=== PATIENT | male | born 1990 | race Caucasian/White ===

== ENCOUNTER 2017-08-10 13:17 | Emergency (ER) | payer SELFPAY ==
[~2017-08-10] VITALS: Ht 182.9 cm; Wt 63.5 kg
[2017-08-10 13:22] VITALS: BP 144/91
[2017-08-10] MEDS ORDERED: METRONIDAZOLE 500 MG TABLET ONE (14:49)
[2017-08-10] MEDS ORDERED: CEFTRIAXONE 500 MG VIAL ONE (14:49)
[2017-08-10] MEDS ORDERED: AZITHROMYCIN 250 MG TABLET ONE ×2 (14:49→14:52)
[2017-08-10] MEDS ORDERED: LIDOCAINE /MPF 1% VIAL 5 ML VIAL ONE (14:51)
[2017-08-10] MEDS ORDERED: CEFTRIAXONE 1 G VIAL ONE (14:52)
[2017-08-10] MEDS ORDERED: LIDOCAINE 2% JEL 5 ML TUBE ONE (14:53)
[2017-08-10] MEDS ORDERED: AZITHROMYCIN 250 MG TABLET PO ONE (15:00)
[2017-08-10] MEDS ORDERED: METRONIDAZOLE 500 MG TABLET PO ONE (15:00)
[2017-08-10] MEDS ORDERED: CEFTRIAXONE 500 MG VIAL IM ONE (15:00)
[2017-08-10 15:05] LABS: APPEARANCE,URINE Slightly Cloudy (CLEAR); BILIRUBIN,URINE Negative (NEGATIVE); BLOOD, URINE Negative Ery/uL (NEGATIVE); COLOR,URINE Yellow (YELLOW); KETONES,URINE Negative (NEGATIVE); LEUKOCYTE ESTERASE ,URINE Moderate (NEGATIVE); NITRITE, URINE Negative (NEGATIVE); PROTEIN,URINE Trace mg/dl (NEGATIVE); UGLUCOSE Negative (NEGATIVE)
[2017-08-10 15:22] LABS: RBC,URINE 0-2 /HPF (0-2)
[2017-08-10 15:23] LABS: CALCIUM OXALATE CRYSTALS,UR Rare /HPF (None Seen); SQUAMOUS EPITHELIAL CELL,UR Few /HPF (None Seen); URINE AMORPHOUS URATE Moderate /HPF (None Seen)
[2017-08-10 15:24] LABS: BACTERIA,URINE None seen /HPF (None Seen)
== END 2017-08-10 15:07 | disposition home or self-care (01) ==
LOC: ER 13:19
DX: N34.2 Other urethritis (principal); R36.9 Urethral discharge, unspecified
CPT/HCPCS: 81000-TC; 87086-TC; 87491; 87591; A4606; J0696; J3490; Z7610

== ENCOUNTER 2019-06-17 00:29 | Emergency (ER) | payer MEDICAID ==
[~2019-06-17] VITALS: Ht 182.9 cm; Wt 59.0 kg
[2019-06-17 00:40] VITALS: BP 122/67
--- NOTE | 2019-06-17 01:06 | NUR ---
urine collected. sent to lab
[2019-06-17 01:17] LABS: APPEARANCE,URINE Clear (CLEAR); BILIRUBIN,URINE Negative (NEGATIVE); BLOOD, URINE Negative Ery/uL (NEGATIVE); COLOR,URINE Yellow (YELLOW); KETONES,URINE Negative (NEGATIVE); LEUKOCYTE ESTERASE ,URINE Trace (NEGATIVE); NITRITE, URINE Negative (NEGATIVE); PROTEIN,URINE Negative (NEGATIVE); UGLUCOSE Negative (NEGATIVE); UROBILINOGEN,URINE 0.2 EU/dL (0.2)
[2019-06-17] MEDS ORDERED: METRONIDAZOLE 500 MG TABLET PO ONE (01:30)
[2019-06-17] MEDS ORDERED: CEFTRIAXONE 500 MG VIAL IM ONE (01:30)
[2019-06-17] MEDS ORDERED: AZITHROMYCIN 250 MG TABLET PO ONE (01:30)
[2019-06-17] MEDS ORDERED: CEFTRIAXONE 500 MG VIAL ONE (01:41)
[2019-06-17] MEDS ORDERED: LIDOCAINE 2% 20 ML MDV ONE (01:41)
[2019-06-17] MEDS ORDERED: METRONIDAZOLE 500 MG TABLET ONE (01:42)
[2019-06-17] MEDS ORDERED: AZITHROMYCIN 250 MG TABLET ONE (01:42)
[2019-06-17 01:55] LABS: BACTERIA,URINE Many /HPF (None Seen); WBC,URINE 21-50 /HPF (0-3)
[2019-06-17 01:56] LABS: MUCUS,URINE Moderate /LPF (None Seen); SQUAMOUS EPITHELIAL CELL,UR Few /HPF (None Seen)
== END 2019-06-17 01:53 | disposition home or self-care (01) ==
LOC: ER 00:31
DX: Z20.2 Contact with and (suspected) exposure to infections with a predominantly sexual mode of transmission (principal); Z60.2 Problems related to living alone
CPT/HCPCS: 81001; 87086; 87491; 87591; 96372; 99283; J0696; J3490; 81000-TC